=== PATIENT | female | born 1960 | race Caucasian/White ===

== ENCOUNTER 2018-04-22 00:32 | Emergency (ER) | payer OTHER ==
[~2018-04-22] VITALS: Ht 165.1 cm; Wt 960.7 kg
--- NOTE | 2018-04-22 00:49 | ED GENERAL ADULT ---
History of Present Illness General Chief Complaint: Female Urogenital Problems Stated Complaint: UTI? Source: patient Exam Limitations: no limitations Vital Signs & Intake/Output Vital Signs & Intake/Output Vital Signs Date Time Temp Pulse Resp B/P B/P Pulse O2 O2 Flow FiO2 Mean Ox Delivery Rate 04/22 0053 98.6 91 18 149/97 97 Room Air Allergies Coded Allergies: No Known Drug Allergies (NKDA 04/22/18) Reconcile Medications Phenazopyridine HCl (Pyridium) 100 MG TABLET 1 TAB PO TID PAINFUL URINATION Sulfamethoxazole/Trimethoprim (Bactrim Ds Tablet) 800 MG-160 MG TABLET 1 TAB PO BID INFECION Triage Nurses Notes Reviewed? yes Onset: Abrupt Duration: hour(s): Timing: recent history Injury Environment: home Severity: mild Modifying Factors: Worsens With: other (worse w/urination). Associated Symptoms: dysuria HPI: 57 yo woman in prior good health presents with painful urination and increased urinary frequency that began at approximately 22:30. She notes, "My last uti was several years ago, and this feels just like that.... I thought I could tough it out, but it really truong." She notes no flank pain, fever, nausea, vomiting, diarrhea. She is otherwise well. Past History Travel History Traveled to [place] past 21 day No Medical History Any Pertinent Medical History? none Surgical History Surgical History: none Family History Hx Contributory? No Review of Systems Review of Systems Constitutional: Denies: see HPI. Physical Exam Physical Exam General Appearance: well developed/nourished, no apparent distress Comments: Review of Systems - except as otherwise noted in HPI Review of Systems Constitutional:no symptoms. EENTM:no symptoms. Respiratory:no symptoms. Cardiovascular:no symptoms. GI:no symptoms. Genitourinary:no symptoms. Musculoskeletal:no symptoms. Skin:no symptoms. Neurological/Psychological:no symptoms. Hematologic/Endocrine:no symptoms. Immunologic/Allergic:no symptoms. All Other Systems: Reviewed and Negative Physical Exam Physical Exam General Appearance: well developed/nourished, no apparent distress Head: atraumatic, normal appearance Eyes: Bilateral: normal appearance. Ears, Nose, Throat: normal pharynx, normal ENT inspection Neck: normal inspection, supple, full range of motion Respiratory: normal breath sounds, chest non-tender, no respiratory distress, quiet respiration, lungs clear Cardiovascular: regular rate/rhythm Gastrointestinal: normal bowel sounds, soft,mild suprapubic tenderness to palpation. no rlq or llq tenderness, no organomegaly Back: normal inspection, normal range of motion, no cva tenderness. Extremities: normal inspection, normal capillary refill, normal range of motion, no edema Neurologic/Psych: no motor/sensory deficits, awake, alert, oriented x 3 Skin: intact, normal color, warm/dry Core Measures ACS in differential dx? No CVA/TIA Diagnosis: No Sepsis Present: No Sepsis Focused Exam Completed? No Progress Differential Diagnoses I considered the following diagnoses in my evaluation of the patient: uti vs other. Plan of Care: Orders Procedure Date/time Status Add-on Test (ER Only) 04/22 148 Active CULTURE,URINE 04/22 37 Active URINALYSIS 04/22 37 Complete Laboratory Tests 04/22/18 0040: Urinalysis LIGHT H, Urine Color BLDY H, Urine Clarity TURBD H, Urine pH 6.5, Ur Specific [place] 1.020, Urine Protein 100 H, Urine Ketones NEG, Urine Nitrite NEG, Urine Bilirubin NEG, Urine Urobilinogen 1.0, Ur Leukocyte Esterase LARGE H, Ur Microscopic SEDIMENT EXAMINED, Urine RBC PACKD H, Urine WBC > 75 H, Ur Epithelial Cells FEW, Urine Bacteria RARE H, Urine Hemoglobin LARGE H, Urine Glucose NEG Microbiology 04/22 46 URINE ROUT: Urine Culture - CAN Cancelled: 04/22 37 URINE ROUT: Urine Culture - RECD Initial ED EKG: none Departure Departure Disposition: HOME OR SELF CARE Condition: Stable Clinical Impression Primary Impression: UTI (urinary tract infection) Referrals: Patient Has No Primary Care Dr (PCP/Family) Departure Forms: Customer Survey General Discharge Information Prescriptions: Current Visit Scripts Sulfamethoxazole/Trimethoprim (Bactrim Ds Tablet) 1 TAB PO BID #10 TAB Phenazopyridine HCl (Pyridium) 1 TAB PO TID #6 TAB Comments well appearing, without systemic signs... exam and u/a consistent with uti... sent rx for abx. close follow up advised. Critical Care Note Critical Care Note Critical Care Time: non-applicable
[2018-04-22 00:53] VITALS: BP 149/97
[2018-04-22] MEDS ORDERED: BACTRIM DS TAB1 EACH PO (01:24)
[2018-04-22] MEDS ORDERED: PYRIDIUM100 M1 PO (01:24)
== END 2018-04-22 01:48 ==
LOC: ERH 00:32
DX: N39.0 Urinary tract infection, site not specified (principal)
CPT/HCPCS: 81001; 87086